=== PATIENT | female | born 1960 | race Two or more races ===

== ENCOUNTER 2017-05-28 15:01 | Outpatient (CLI) | payer OTHER ==
[~2017-05-28 15:01] MED LIST: CELEBREX200MG PO; MEDROLPACK PO; SKELAXIN800 MG PO
== END 2017-05-28 15:30 | disposition home or self-care (01) ==
LOC: SONOGRAMA 15:01
DX: R10.9 Unspecified abdominal pain (principal)

== ENCOUNTER 2017-05-28 15:08 | Outpatient (CLI) | payer OTHER | END 2017-05-28 15:40 | disposition home or self-care (01) | LOC: RAD 15:08 | DX: M54.5 Low back pain (principal); M54.2 Cervicalgia ==

== ENCOUNTER → 2022-05-13 | Outpatient (CLI) | payer OTHER | END | disposition home or self-care (01) | LOC: MAMO-SONO 13:14 | DX: Z12.31 Encounter for screening mammogram for malignant neoplasm of breast (principal); N83.292 Other ovarian cyst, left side ==

== ENCOUNTER 2022-07-31 14:36 | Outpatient (CLI) | payer OTHER | END 2022-07-31 14:46 | disposition home or self-care (01) | LOC: RAD 14:36 | DX: M25.561 Pain in right knee (principal); M54.2 Cervicalgia; M54.41 Lumbago with sciatica, right side; M54.6 Pain in thoracic spine ==

== ENCOUNTER 2022-09-08 15:11 | Outpatient (CLI) | payer OTHER | END 2022-09-08 15:25 | disposition home or self-care (01) | LOC: RAD 15:11 | DX: R05.8 Other specified cough (principal) ==

== ENCOUNTER → 2023-02-26 13:45 | Outpatient (CLI) | payer OTHER ==
[2023-02-26 15:01] LABS: URINE APPEARANCE Clear; URINE BILIRRUBIN Negative (NEGATIVE); URINE BLOOD Negative; URINE COLOR Yellow; URINE LEUKOCYTE Negative; URINE NITRATE Negative; URINE PROTEIN Negative (NEGATIVE)
[2023-02-26 15:05] LABS: URINE BACTERIA 11.3 uL (0.0-1933); URINE EPITHELIAL CELLS 3.5 uL (0.0-38.8); URINE RBC 4.1 uL (0.0-20.8)
[2023-02-26 15:12] LABS: URINE GLUCOSE >=1000 MG/DL (NEGATIVE); URINE WBC 1.5 uL (0.0-23.2)
== END | disposition home or self-care (01) ==
LOC: LAB 13:45
PROVIDERS: ATTEND Specialist
DX: N39.0 Urinary tract infection, site not specified (principal); Z88.6 Allergy status to analgesic agent